=== PATIENT | female | born 2000 | race Caucasian/White ===

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

== ENCOUNTER 2024-05-11 11:52 | Emergency (ER) | payer OTHER, SELFPAY ==
[2024-05-11 12:05] VITALS: BP 134/57; PULSE 89; RESP 16; TEMP 36.2; O2SAT 100
--- NOTE | 2024-05-11 12:39 | ED_ITS ---
HPI - URI/Sore Throat General Chief Complaint: Upper Respiratory Infection Stated Complaint: Weak/throat/drainage Time Seen by Provider: 05/11/24 12:40 Source: patient, RN notes reviewed and old records reviewed Mode of arrival: ambulatory Limitations: no limitations History of Present Illness HPI Narrative: 23-year-old female to Express Care with fatigue, postnasal drainage, swollen tonsils and hoarseness for 2-3 Weeks. Patient has attempted to treat at home with Tylenol. Patient denies cough, allergies, fever, pertinent medical history. Patient able to tolerate fluids by mouth. Patient denies shortness of breath, difficulty swallowing, fever , allergies, pertinent medical history. patient appears tired, resting comfortably in exam room in no acute distress. Respirations even and nonlabored. Patient requesting work note. Related Data Home Medications Medication Instructions Recorded Confirmed clonazepam 1 mg tablet 1 mg PO DAILY PRN Anxiety 05/11/24 05/11/24 Allergies Allergy/AdvReac Type Severity Reaction Status Date / Time No Known Allergies Allergy Verified 08/23/19 08:43 Review of Systems Review of Systems: All systems reviewed & are unremarkable except as noted in HPI and below Constitutional: Constitutional: Reports as per HPI and Reports fatigue Eyes: Eyes: Reports no additional eye complaints ENT: Reports as per HPI, Reports hoarseness, Reports post nasal drip and Reports sore throat (swollen tonsils per pt) Cardiovascular: Cardiovascular: Reports no additional cardiovascular complaints, Denies chest pain and Denies dyspnea Respiratory: Respiratory: Reports no additional respiratory complaints, Denies cough and Denies dyspnea Musculoskeletal: Musculoskeletal: Reports no additional musculoskeletal complaints Neurologic: Reports system reviewed and no additional complaints, except as documented Psychiatric: Psychiatric: Reports no additional psychiatric complaints PMFSH Past Medical History Medical History GERD (gastroesophageal reflux disease) Surgical History Surgical History History of cholecystectomy Comments At the time of my signature, I reviewed and agree with the nursing past med ical, surgical, social, and family history. There is no relevant family history pertinent to the patient complaint. Exam Const: General: cooperative, no acute distress, alert, tired appearing and well nourished Nutritional Appearance: well nourished [place] entation/consciousness: patient oriented x3 Limitations: no limitations HENMT: Head: normal to inspection Ears: external ears normal and TM abnormal with fluid behind the TM bilateral Face/Nose/Sinus: Normal external nose present, Normal nares present, normal facial exam, No erythema and No edema Face and sinus: normal facial exam, no erythema and no edema Mouth: Yes Normal oral and palatal mucosa present Throat: posterior oropharynx abnormal erythema and postnasal drainage Eyes: General: appearance normal, both eyes and all related structures Neck: Neck: normal visual inspection, full ROM and no meningeal signs Lymphatic: no lymphadenopathy noted and no lymphedema noted Chest: Chest palpation & inspection: normal inspection of the chest Resp: Effort & Inspection: normal respiratory effort and able to speak in complete sentences Auscultation: clear to auscultation bilaterally Cardio: Jugular venous distension: no JVD Rate: regular rate Rhythm: regular rhythm Back/Spine/Pelvis: Cervical Spine: cervical ROM normal Skin: General skin exam: normal color, no rashes or lesions noted and turgor normal Neuro: General: patient oriented x3, gait normal, moves all extremities and no meningeal signs Speech: normal speech Gait exam (Neuro): Normal gait present Extrem: General: normal to inspection, full ROM and capillary refill normal Psych: Appearance: grossly normal and well kempt Course Course Emergency Course: Some parts of this dictation were generated by voice recognition software and may contain typographical and/or grammatical inaccuracies. Level of Care: Express Care Visit Vital Signs Vital signs: Vital Signs Temperature 36.2 C L 05/11/24 12:05 Pulse Rate 89 05/11/24 12:05 Respiratory Rate 16 05/11/24 12:05 Blood Pressure 134/57 L 05/11/24 12:05 Pulse Oximetry 100 05/11/24 12:05 Oxygen Delivery Room Air 05/11/24 12:05 Temperature 36.2 C L 05/11/24 12:05 Pulse Rate 89 05/11/24 12:05 Respiratory Rate 16 05/11/24 12:05 Blood Pressure 134/57 L 05/11/24 12:05 Pulse Oximetry 100 05/11/24 12:05 Oxygen Delivery Room Air 05/11/24 12:05 reviewed MDM - URI/Sore Throat MDM Narrative Medical decision making narrative: 23-year-old female to Express Care with fatigue, postnasal drainage, swollen tonsils and hoarseness for 2-3 Weeks. Patient has attempted to treat at home with Tylenol. Patient denies cough, allergies, fever, pertinent medical history. Patient able to tolerate fluids by mouth. Patient denies shortness of breath, difficulty swallowing, fever , allergies, pertinent medical history. patient appears tired, resting comfortably in exam room in no acute distress. Respirations even and nonlabored. Patient requesting work note. On exam, bilateral TMs with fluid, posterior oropharynx erythematous with purulent postnasal drainage. exam otherwise unremarkable. Patient is sitting comfortably in exam room nontoxic in appearance. Patient appropriate for outpatient treatment and follow-up. Discharge instructions reviewed with patient, as well as provided in writing per nursing staff. The instructions also include specific and strict return/GO TO THE ER as well as f/u information. All questions have been answered, and the patient deny any further questions with discharge and discharge plan. Some parts of this dictation were generated by voice recognition software and may contain typographical and/or grammatical inaccuracies. Differential Diagnosis Differential diagnosis: Likely upper respiratory infection, croup, otitis media, sinusitis, viral infection, bronchitis, influenza and pharyngitis Discharge Plan Discharge Clinical Impression: Bacterial sinusitis Patient Disposition: Home, Self-Care Condition: Stable Instructions: Sinusitis (ED) Additional Instructions: -Alternate Tylenol and Motrin per package directions for fever or pain. -Antihistamine medication such as Benadryl at night and Zyrtec/Claritin/Anabella during the day can help improve symptoms. -Use Flonase twice a day for 5 days then daily to help reduce the inflammation and dry up your sinuses. -You can also use Sudafed or Mucinex. Be sure to drink plenty of water with th hiram medications at least 8 ounces with every dose and it is important to drink 8 to 10 glasses of water per day. Water is a natural decongestant -Eat and drink things that are easy to swallow, like tea or soup, or popsicles. -Oral rinses such as: Salt water gargles and/or may use topical anesthetic (eg. Chloraseptic spray) or lozenges to relieve dryness or throat pain). -Frequent hand washing or hand statistical methods teacher is one of the best ways to prevent spread of infection. -Using a vaporizer or humidifier at night will also help thin secretions and help with coughing up phlegm. -Follow up with primary care provider in 2-3 days if condition is not improving; or seek ER visit if you have trouble breathing, cannot drink enough fluids, have muffled voice, difficulty opening your mouth, or severe swelling. Prescriptions: New amoxicillin-pot clavulanate 875-125 mg tablet 1 tablet PO Q12H Qty: 20 0RF No Action clonazepam 1 mg tablet 1 mg PO DAILY PRN (Reason: Anxiety) Follow-up/Referrals: PHYSICIAN,TRACING LATHE SET UP OPERATOR [Primary Care Provider] -
== END 2024-05-11 12:57 | disposition home or self-care (01) ==
PROVIDERS: Emergency Provider Nurse Practitioner Family
DX: J32.9 Chronic sinusitis, unspecified (principal); B96.89 Other specified bacterial agents as the cause of diseases classified elsewhere; K21.9 Gastro-esophageal reflux disease without esophagitis
CPT/HCPCS: 99213; G0463

== ENCOUNTER 2024-07-17 17:18 | Emergency (ER) | payer OTHER, SELFPAY ==
[2024-07-17 17:28] VITALS: BP 135/79; PULSE 97; RESP 18; TEMP 37.9; O2SAT 100
--- NOTE | 2024-07-17 18:15 | ED.GENADULT ---
HPI - General Adult General Chief complaint: Unspecified Stated complaint: injury on left side Time Seen by Provider: 07/17/24 18:00 Source: patient, RN notes reviewed and old records reviewed Mode of arrival: ambulatory Limitations: no limitations History of Present Illness HPI narrative: 24 year old female presents to [facility] care with complaints of while working at [employer] on the she carried an item to a cart and felt like she pulled a muscle in her left upper lateral abdom.en area. Patient reports that after working yesterday having increased pain with lifting and twisting. She reports that she has been taking Ibuprofen and using cool and heat patches to left upper lateral abdomen area without relief. Patient reports no shortness of breath or pain with deep breathing, denies any radiation of pain Related Data Home Medications ?Medication ?Instructions ?Recorded ?Confirmed ?Last Taken ?Type No Home Medications 07/17/24 Unknown History Allergies Allergy/AdvReac Type Severity Reaction Status Date / Time No Known Allergies Allergy Verified 07/17/24 17:29 Review of Systems Review of Systems: CONSTITUTIONAL: Denies fever, chills, or sweats. EYES: Denies visual changes, redness, or discharge. ENT: Denies rhinorrhea, congestion, sore throat, or otalgia. CARDIOVASCULAR: Denies chest pain, palpitations, or edema. RESPIRATORY: Denies cough or dyspnea. GASTROINTESTINAL: Denies abdominal pain, nausea, vomiting, or diarrhea. GENITOURINARY: Denies dysuria or hematuria. SKIN: Denies rash or itching. MUSCULOSKELETAL: Denies back pain, joint pain, or myalgia reports pain to upper lateral left abdomen aggravated with movement. NEUROLOGIC: Denies headache, numbness, or weakness. PSYCHIATRIC: Denies anxiety or depression. All systems reviewed & are unremarkable except as noted in HPI and below [facility] Past Medical History Medical History (Updated 07/21/24 @ 08:15 by Kateryna Bains NP) GERD (gastroesophageal reflux disease) Surgical History Surgical History (Updated 07/21/24 @ 08:10 by Kateryna Bains NP) History of dental surgery History of cholecystectomy Social History Social History (Updated 07/21/24 @ 08:10 by Kateryna Bains NP) Smoking status: Never smoker Alcohol intake: unknown Substance use: unknown Gender identity (if verbalized by the patient): Female Comments At time of signature, agree with nursing past medical, surgical, social and family history. There is no relevant family history pertinent to the presenting complaint Exam Narrative: GENERAL: Well-appearing, well-nourished, and in no acute distress. HEAD: Normocephalic, atraumatic. EYES: PERRLA and EOMI. ENT: Nares clear, no rhinorrhea or epistaxis. Mucous membranes moist. NECK: Supple.no lymphadenopathy CHEST: Clear to auscultation. No respiratory distress. no cough noted SAO2 100% on room air HEART: Regular rate and rhythm. No murmur heard. Normal peripheral pulses. ABDOMEN: Soft, nontender, nondistended, normal active bowel sounds. reproducible discomfort to left lateral upper abdomen on palpation EXTREMITIES: Normal range of motion. No edema. SKIN: Warm, dry, no rash. NEURO: No focal deficits. Alert and oriented x3. Course Course Emergency Course: Patient is aware of diagnosis, understands and agrees to treatment plan.? Anticipatory guidance given.? Patient agrees to follow-up as directed and is aware of reasons to seek care at the emergency department. Portions of this record may have been created with voice recognition software Level of Care: Express Care Visit Vital Signs Vital signs: Vital Signs Temperature 37.9 C H 07/17/24 17:28 Pulse Rate 97 07/17/24 17:28 Respiratory Rate 18 07/17/24 17:28 Blood Pressure 135/79 07/17/24 17:28 Pulse Oximetry 100 07/17/24 17:28 Oxygen Delivery Room Air 07/17/24 17:28 Temperature 37.9 C H 07/17/24 17:28 Pulse Rate 97 07/17/24 17:28 Respiratory Rate 18 07/17/24 17:28 Blood Pressure 135/79 07/17/24 17:28 Pulse Oximetry 100 07/17/24 17:28 Oxygen Delivery Room Air 07/17/24 17:28 Reviewed Medical Decision Making MDM Narrative Medical decision making narrative: Exam findings and imaging show no acute concerns or changes; patient is non-toxic appearing and is in no distress.? Patient is appropriate for outpatient treatment and follow-up Differential Diagnosis Differential Diagnosis: muscle strain left upper lateral abdomen, pain to left upper lateral abdomen, muscle spasm Medical Records Medical records reviewed: Yes I reviewed the external patient's medical records. Vital Signs Vital Signs: Vital Signs Temperature 37.9 C H 07/17/24 17:28 Pulse Rate 97 07/17/24 17:28 Respiratory Rate 18 07/17/24 17:28 Blood Pressure 135/79 07/17/24 17:28 Pulse Oximetry 100 07/17/24 17:28 Oxygen Delivery Room Air 07/17/24 17:28 Temperature 37.9 C H 07/17/24 17:28 Pulse Rate 97 07/17/24 17:28 Respiratory Rate 18 07/17/24 17:28 Blood Pressure 135/79 07/17/24 17:28 Pulse Oximetry 100 07/17/24 17:28 Oxygen Delivery Room Air 07/17/24 17:28 reviewed Critical Care Time Critical Care Time Critical Care Time: No Discharge Plan Discharge Clinical Impression: Strain of abdominal muscle Qualifiers: Encounter type: initial encounter Qualified Code(s): S39.011A - Strain of muscle, fascia and tendon of abdomen, initial encounter Patient Disposition: Home, Self-Care Condition: Stable Instructions: Antibiotic Form Additional Instructions: Prednisone 40mg daily for the next 5 days with food taken a.m. Tylenol for lesser pain Ibuprofen regularly for the next 2-3 days for the inflammation Muscle relaxant at bedtime absolutely no alcohol or driving while taking this medication Follow-up with PCP if further problems or concerns Ice to the area 20-30 minutes 4-6 times a day If your symptoms persist, change or worsen significantly before you can contact your personal physician then please, without delay, go to the emergency department for further evaluation. Follow-up with PCP in 7-10 days or sooner if needed Follow up with PCP soon in regards to your blood pressure which is elevated above threshold for referral. Blood pressure above 120/80 may indicate pre-hypertension. 135/79 Patient Language: Mohawk Prescriptions: New prednisone 20 mg tablet 40 mg PO DAILY 5 Days Qty: 10 0RF Rx Instructions: take in am cyclobenzaprine 10 mg tablet 10 mg PO HS Qty: 10 0RF No Action No Home Medications Follow-up/Referrals: PHYSICIAN,SAMPLE CLERK [Primary Care Provider] - Stand Alone Forms: Work/School Release IP Time of Disposition: 18:32 Quality [place] Coma Scale Eyes: Open Verbal: Oriented and Alert Motor: Follows Commands [place] Coma Total Score: 15
== END 2024-07-17 18:37 | disposition home or self-care (01) ==
PROVIDERS: Emergency Provider Registered Nurse
DX: S39.011A Strain of muscle, fascia and tendon of abdomen, initial encounter (principal); X50.9XXA Other and unspecified overexertion or strenuous movements or postures, initial encounter; Y99.0 Civilian activity done for income or pay; K21.9 Gastro-esophageal reflux disease without esophagitis
CPT/HCPCS: 99213; G0463